=== PATIENT | male | born 1960 | race African-American/Black ===

== ENCOUNTER 2017-02-05 10:44 | Emergency (ER) | payer OTHER ==
[~2017-02-05] VITALS: Ht 172.7 cm; Wt 81.4 kg
[2017-02-05] MEDS ORDERED: INSULADS INJ (11:01)
[2017-02-05] MEDS ORDERED: LISI10TA4 PO (11:01)
[2017-02-05] MEDS ORDERED: GEMF600T PO (11:01)
[2017-02-05] MEDS ORDERED: METF10004 PO (11:01)
[2017-02-05] MEDS ORDERED: ASPI81CH PO (11:01)
[2017-02-05] MEDS ORDERED: NS 1,000 ML IV ONE (11:45)
[2017-02-05] MEDS ORDERED: PANTOPRAZOLE 40MG INJ (PROTONIX) (C9113) IV ONE (11:45)
[2017-02-05 12:02] LABS: BASO # 0.1 K/mm3 (0.0-0.2); EOS # 0.3 K/mm3 (0.0-0.50); LARGE UNSTAINED CELL # 0.2 K/mm3 (0.0-0.4); LARGE UNSTAINED CELL % 3.2 % (0.0-4.0); LYMPH # 1.9 K/mm3 (1.5-4.5); LYMPH % 27.6 % (24.0-44.0); MEAN CORPUSCULAR HEMOGLOBIN 28.1 pg (27.0-33.0); MEAN CORPUSCULAR HGB CONC 33.7 g/dl (32.0-36.5); MEAN CORPUSCULAR VOLUME 83.5 fl (80.0-96.0); MONO # 0.5 K/mm3 (0.0-0.8); MONO % 7.3 % (0.0-5.0); NEUTROPHILS # 3.8 K/mm3 (1.8-7.7); PLATELET COUNT, AUTOMATED 288 k/mm3 (150-450); RED CELL DISTRIBUTION WIDTH 12.6 % (11.5-14.5); WHITE BLOOD COUNT 6.7 K/mm3 (4.0-10.0)
[2017-02-05 12:19] LABS: ALBUMIN/GLOBULIN RATIO 1.03 (1.00-1.93); ALKALINE PHOSPHATASE 122 U/L (45-117); ALT/SGPT 16 U/L (12-78); ANION GAP 7 MEQ/L (8-16); AST/SGOT 11 U/L (15-37); BILIRUBIN,DIRECT < 0.1 MG/DL (0.0-0.2); BILIRUBIN,TOTAL 0.4 MG/DL (0.2-1.0); BLOOD UREA NITROGEN 16 MG/DL (7-18); CALCIUM LEVEL 9.5 MG/DL (8.5-10.1); CARBON DIOXIDE LEVEL 26 MEQ/L (21-32); CHLORIDE LEVEL 104 MEQ/L (98-107); GLOMERULAR FILTRATION RATE > 60.0 (>56); GLUCOSE, FASTING 164 MG/DL (70-105); POTASSIUM SERUM 4.8 MEQ/L (3.5-5.1); SODIUM LEVEL 137 MEQ/L (136-145); TOTAL PROTEIN 7.9 GM/DL (6.4-8.2)
--- NOTE | 2017-02-05 12:35 | REP ---
Clinical: Acute abdominal pain. Technique: Upright view of the chest with supine and upright views of the abdomen and pelvis. Findings: Frontal upright view of the chest demonstrates no acute cardiopulmonary process or free air below the diaphragm to suspect pneumoperitoneum. Supine and upright views of the abdomen and pelvis demonstrate nonspecific bowel gas pattern without obstruction or perforation. No organomegaly. No abnormal calcifications. Skeletal structures normal for age. Impression: Nonspecific bowel gas pattern. Signed by Valerio Scott MD 02/05/2017 12:27 P
--- NOTE | 2017-02-05 13:40 | REP ---
Clinical: Right upper quadrant pain abdominal pain. Technique: Buchanan scale ultrasound using curved array transducer. Findings: The liver demonstrates mild fatty infiltration. Liver and pancreas are otherwise normal in contour, size, and pancreatic echogenicity without focal hepatic or pancreatic lesions identified. The gallbladder is normal without gallstones, wall thickening or pericholecystic fluid. No biliary ductal dilatation is appreciated, and the common bile duct measures 5.1 mm diameter. The right kidney is normal in reniform shape without hydronephrosis and measures 10.6 x 5.9 x 5.0 cm. No ascites. Visualized portions of the abdominal aorta normal. Impression: Mild fatty infiltration to the liver. Normal right upper quadrant and gallbladder abdominal ultrasound. Signed by Valerio Scott MD 02/05/2017 01:31 P
[2017-02-05] MEDS ORDERED: NORCOTAB PO (16:05)
[2017-02-05 16:22] VITALS: BP 134/83
== END 2017-02-05 16:25 | disposition home or self-care (01) ==
LOC: M ED 10:44
DX: K85.00 Idiopathic acute pancreatitis without necrosis or infection (principal); E11.9 Type 2 diabetes mellitus without complications; F17.200 Nicotine dependence, unspecified, uncomplicated; Z79.4 Long term (current) use of insulin; Z79.82 Long term (current) use of aspirin; Z79.899 Other long term (current) drug therapy
CPT/HCPCS: 74022; 76705; 80048; 80076; 81001; 83690; 85025; 96361; 96374; 99283; C9113

== ENCOUNTER → 2017-02-10 | Outpatient (REF) | payer OTHER ==
[~2017-02-10] MED LIST: ASPI81CH PO; GEMF600T PO; INSULADS INJ; LISI10TA4 PO; METF10004 PO; NORCOTAB PO
[2017-02-10 08:29] LABS: MEAN CORPUSCULAR HEMOGLOBIN 27.8 pg (27.0-33.0); MEAN CORPUSCULAR HGB CONC 33.1 g/dl (32.0-36.5); MEAN CORPUSCULAR VOLUME 83.8 fl (80.0-96.0); RED CELL DISTRIBUTION WIDTH 12.8 % (11.5-14.5); WHITE BLOOD COUNT 5.7 K/mm3 (4.0-10.0)
[2017-02-10 09:43] LABS: POTASSIUM SERUM 4.4 MEQ/L (3.5-5.1)
== END ==
LOC: M LAB REF 08:12
PROVIDERS: ATTEND Surgery
DX: K85.90 Acute pancreatitis without necrosis or infection, unspecified (principal)